=== PATIENT | male | born 1940 | race Caucasian/White ===

== ENCOUNTER 2016-10-10 12:50 | Inpatient (IN) | payer MEDICARE, OTHER ==
[2016-10-10] MEDS ORDERED: CYMBALTA60 M1 PO (15:55)
[2016-10-10] MEDS ORDERED: APIDRA100 UNIT/1 SC (15:55)
[2016-10-10] MEDS ORDERED: GLUCOSAMINE CH1 EAC8 PO (15:56)
[2016-10-10] MEDS ORDERED: CHILDREN'S ASPI81 M1 PO (15:56)
[2016-10-10] MEDS ORDERED: HYZAAR 100-12.1 EACH PO (15:56)
[2016-10-10] MEDS ORDERED: LIPITOR40 M1 PO (15:56)
[2016-10-10 16:21] LABS: BASO % 0.2 % (0-2); EOS % 2.5 % (0-7); EOSINOPHIL ABSOLUTE COUNT 0.3 tho/cmm (0.0-0.7); HCT-HEMATOCRIT 45.6 % (36.0-53.5); HGB-HEMOGLOBIN 14.9 gm/dl (13.5-17.0); IMMATURE GRANULOCYTES ABSOLUTE 0.03 tho/cmm (0-0.03); IMMATURE GRANULOCYTES PERCENT 0.2 % (0-0.3); LYMPH % 15.2 % (20-45); MCH (MEAN CORPUSCULAR HGB) 30.2 pg (28.0-32.0); MCHC MEAN CORPUSCULAR HGB CONC 32.7 % (32.0-36.0); MCV (MEAN CELL VOLUME) 92.3 fl (82.0-96.0); MONO % 5.9 % (0-12); MONOCYTE ABSOLUTE COUNT 0.8 tho/cmm (0.0-1.2); PLATELET COUNT 70 tho/cmm (150-450); RED BLOOD COUNT 4.94 mil/cmm (4.40-5.70); RED CELL DISTRIBUTION WIDTH 13.8 % (12.4-16.4); WHITE BLOOD COUNT 13.2 tho/cmm (4.0-10.0)
[2016-10-10 16:40] LABS: ANION GAP 11 mmol/L (0-20); BLOOD UREA NITROGEN 19 mg/dl (6-24); CALCIUM 9.7 mg/dl (8.5-10.5); CARBON DIOXIDE-VENOUS 32 mmol/L (22-32); CHLORIDE 104 mmol/l (96-110); CREATININE 1.11 mg/dl (0.60-1.30); GLUCOSE 154 mg/dL (70-110); SODIUM 142 mmol/L (135-145); eGFR VALUE FOR BLACK 74 mL/Min
[2016-10-10 16:41] LABS: POTASSIUM 4.5 mmol/L (3.7-5.1)
[2016-10-11 19:42] LABS: BASO % 0.2 % (0-2); EOS % 0.1 % (0-7); HCT-HEMATOCRIT 43.6 % (36.0-53.5); HGB-HEMOGLOBIN 14.2 gm/dl (13.5-17.0); IMMATURE GRANULOCYTES ABSOLUTE 0.03 tho/cmm (0-0.03); IMMATURE GRANULOCYTES PERCENT 0.2 % (0-0.3); LYMPH % 6.2 % (20-45); LYMPH ABSOLUTE COUNT 0.8 tho/cmm (0.8-4.5); MCHC MEAN CORPUSCULAR HGB CONC 32.6 % (32.0-36.0); MCV (MEAN CELL VOLUME) 92.2 fl (82.0-96.0); MONO % 0.7 % (0-12); MONOCYTE ABSOLUTE COUNT 0.1 tho/cmm (0.0-1.2); NEUTROPHIL ABSOLUTE COUNT 11.2 tho/cmm (1.6-8.0); NEUTROPHIL-AUTOMATED 11.2 tho/cmm (1.6-8.0); NEUTROPHILS % 92.6 % (40-80); RED BLOOD COUNT 4.73 mil/cmm (4.40-5.70); RED CELL DISTRIBUTION WIDTH 13.4 % (12.4-16.4); WHITE BLOOD COUNT 12.1 tho/cmm (4.0-10.0)
[2016-10-11 19:52] LABS: PLATELET COUNT 78 tho/cmm (150-450)
[2016-10-13 04:40] LABS: HCT-HEMATOCRIT 38.3 % (36.0-53.5); HGB-HEMOGLOBIN 12.4 gm/dl (13.5-17.0); IMMATURE GRANULOCYTES PERCENT 0.4 % (0-0.3); LYMPH % 4.1 % (20-45); LYMPH ABSOLUTE COUNT 1.1 tho/cmm (0.8-4.5); MCH (MEAN CORPUSCULAR HGB) 29.9 pg (28.0-32.0); MCHC MEAN CORPUSCULAR HGB CONC 32.4 % (32.0-36.0); MCV (MEAN CELL VOLUME) 92.3 fl (82.0-96.0); MEAN PLATELET VOLUME 15.2 cmc (9.4-12.4); MONOCYTE ABSOLUTE COUNT 1.7 tho/cmm (0.0-1.2); NEUTROPHIL ABSOLUTE COUNT 24.7 tho/cmm (1.6-8.0); NEUTROPHIL-AUTOMATED 24.7 tho/cmm (1.6-8.0); NEUTROPHILS % 89.5 % (40-80); RED BLOOD COUNT 4.15 mil/cmm (4.40-5.70); RED CELL DISTRIBUTION WIDTH 13.8 % (12.4-16.4)
[2016-10-13 04:48] LABS: ANION GAP 14 mmol/L (0-20); BLOOD UREA NITROGEN 24 mg/dl (6-24); CALCIUM 8.6 mg/dl (8.5-10.5); CARBON DIOXIDE-VENOUS 27 mmol/L (22-32); CHLORIDE 103 mmol/l (96-110); CREATININE 1.54 mg/dl (0.60-1.30); GLUCOSE 304 mg/dL (70-110); POTASSIUM 4.6 mmol/L (3.7-5.1); SODIUM 139 mmol/L (135-145); eGFR VALUE FOR BLACK 50 mL/Min
[2016-10-13 05:28] LABS: PLATELET COUNT 138 tho/cmm (150-450); WHITE BLOOD COUNT 27.6 tho/cmm (4.0-10.0)
[2016-10-14 00:46] LABS: MAGNESIUM 2.2 mg/dl (1.3-2.6); POTASSIUM 4.1 mmol/L (3.7-5.1)
[2016-10-16] MEDS ORDERED: TYLENOL325 M2 PO (12:22)
[2016-10-16] MEDS ORDERED: DEXAMETHASONE4 M1 PO ×2 (12:23→12:24)
[2016-10-16] MEDS ORDERED: MILK OF MAGNESIA PO (12:25)
[2016-10-16] MEDS ORDERED: SENNA PLUS TAB1 EAC1 PO (12:26)
[2016-10-16] MEDS ORDERED: NOVOLOG (12:28)
[2016-10-16] MEDS ORDERED: NOVOLIN N100 UNIT/2 SC (12:29)
[2016-10-16] MEDS ORDERED: GLUCAGON HCL1 MG IM (12:31)
[2016-10-16] MEDS ORDERED: NOVOLOG100 UNITS/ SC (12:32)
== END 2016-10-16 14:39 | DRG 27 ==
LOC: EDMED 12:50 → EMR2 17:43 → 5EB 19:50 → ORE 10-12 12:56 → PACU 10-12 15:30 → CCU 10-12 16:41 → 5EA 10-14 16:40
PROVIDERS: Emergency Medicine; Internal Medicine Hematology & Oncology; Neurological Surgery; Nurse Practitioner Acute Care; ADMIT Internal Medicine
PROC: 00BC0ZZ Excision of Cerebellum, Open Approach (ICD-10-PCS; principal; 2016-10-12)
DX: C71.6 Malignant neoplasm of cerebellum (principal); D69.6 Thrombocytopenia, unspecified; E66.01 Morbid (severe) obesity due to excess calories; E11.9 Type 2 diabetes mellitus without complications; E78.5 Hyperlipidemia, unspecified; I10 Essential (primary) hypertension; R00.2 Palpitations
CPT/HCPCS: A9577; C1713; G8978-GP-CI; G8979-GP-CI; G8987-GO-CH; G8988-GO-CH; G8989-GO-CH; J0690; J1100; J1650; J1815; J2060; J2270; J2405; J7030; J7040; Q9967